=== PATIENT | male | born 1985 | race Two or more races ===

== ENCOUNTER 2023-09-14 17:40 | Emergency (ER) | payer BC ==
[~2023-09-14] VITALS: Ht 175.3 cm; Wt 112.3 kg
[2023-09-14] MEDS ORDERED: FLUT1SPR5 (20:15)
[2023-09-14] MEDS ORDERED: IPRATROPIUM BROM 0.5 MG/2.5ML INH SOL NEB ONE (20:15)
[2023-09-14] MEDS ORDERED: PRED20TA2 PO (20:15)
[2023-09-14] MEDS ORDERED: guaiFENesin-CODEINE Liq 5 ML UD PO ONE (20:15)
[2023-09-14] MEDS ORDERED: ALBU108A5 IN (20:15)
[2023-09-14] MEDS ORDERED: BENZ200C64 PO (20:15)
[2023-09-14] MEDS ORDERED: ALBUTEROL SULF 2.5 MG/0.5ML(0.5%) NEB SOLN NEB ONE (20:15)
[2023-09-14] MEDS ORDERED: AUG875T PO (20:15)
[2023-09-14] MEDS ORDERED: DexAMETHasone SOD PHOS 10MG/1ML VIAL INJ IM ONE (20:15)
[2023-09-14] MEDS ORDERED: IPRATROPIUM BROM 0.5 MG/2.5ML INH SOL ONE (20:17)
[2023-09-14] MEDS ORDERED: ALBUTEROL SULF 2.5 MG/0.5ML(0.5%) NEB SOLN ONE (20:17)
[2023-09-14 20:55] VITALS: BP 138/91; PULSE 93; RESP 18; TEMP 98.3; O2SAT 95
== END 2023-09-14 20:58 | disposition home or self-care (01) ==
LOC: ER 17:40
DX: J20.9 Acute bronchitis, unspecified (principal); J32.1 Chronic frontal sinusitis; Z79.899 Other long term (current) drug therapy
CPT/HCPCS: 71045; 94640; 96372; 99283; J1100; J7644